=== PATIENT | female | born 1955 | race Caucasian/White ===

== ENCOUNTER → 2017-05-24 | Outpatient (CLI) | payer OTHER ==
[~2017-05-24] MED LIST: [UNRECOGNIZED DRUG - REMARK]
== END | disposition home or self-care (01) ==
LOC: CFH 12:59
PROVIDERS: ATTEND Family Medicine
DX: M19.011 Primary osteoarthritis, right shoulder (principal); M19.012 Primary osteoarthritis, left shoulder

== ENCOUNTER → 2017-11-29 | Outpatient (CLI) | payer BC ==
[~2017-11-29] MED LIST changes: +ACET-458 PO; +AMLO5TAB2 PO; +CHOL500045 PO; +MELO15TA24 PO; +MULT-658 PO; +OMEP20TA62 PO; +QUIN20TA17 PO; +TURM500C4 PO
[2017-11-29 15:01] LABS: CHLORIDE 110 mmol/L (98-107)
[2017-11-29 15:05] LABS: ALANINE AMINOTRANSFERASE 37 U/L (12-78); ALKALINE PHOSPHATASE 103 U/L (45-117); ANION GAP 7 mmol/L (5-15); BILIRUBIN,TOTAL 1.8 mg/dL (0.2-1.0); CALCIUM 8.7 mg/dL (8.5-10.1); CREATININE 0.69 mg/dL (0.55-1.02); TOTAL PROTEIN 7.2 g/dL (6.4-8.2)
== END | disposition home or self-care (01) ==
LOC: STAR 13:47
PROVIDERS: ATTEND Orthopaedic Surgery
DX: Z01.818 Encounter for other preprocedural examination (principal); M75.121 Complete rotator cuff tear or rupture of right shoulder, not specified as traumatic; M75.21 Bicipital tendinitis, right shoulder
CPT/HCPCS: 36415; 80053; 93005

== ENCOUNTER 2017-12-10 09:10 | Day surgery (SDC) | payer BC ==
[~2017-12-10] VITALS: Ht 172.7 cm; Wt 84.1 kg
[~2017-12-10 09:10] MED LIST changes: +BUPIVACAINE/PF 0.5% ONE; +EPINEPHRINE 1 MG/ML, 1ML ONE; +LIDOCAINE 1%, 50ML ONE
[2017-12-10] MEDS ORDERED: GABAPENTIN 300 MG CAPSULE PO ONE (09:28)
[2017-12-10] MEDS ORDERED: ACETAMINOPHEN 500 MG TABLET PO ONE (09:28)
[2017-12-10] MEDS ORDERED: ONDANSETRON ODT 8 MG PO ONE ×2 (09:28→10:00)
[2017-12-10] MEDS ORDERED: LACTATED RINGERS 1,000 ML IV SCH (09:34)
[2017-12-10] MEDS ORDERED: ACETAMINOPHEN 500 MG TABLET ONE (09:34)
[2017-12-10 09:35] VITALS: BP 150/78
[2017-12-10] MEDS ORDERED: LIDOCAINE-MPF 1%, 2ML ONE (09:35)
[2017-12-10] MEDS ORDERED: GABAPENTIN 300 MG CAPSULE ONE (09:35)
[2017-12-10] MEDS ORDERED: ONDANSETRON ODT 8 MG ONE (09:37)
[2017-12-10] MEDS ORDERED: MIDAZOLAM 1 MG/ML, 2ML ONE (09:47)
[2017-12-10] MEDS ORDERED: FENTANYL PF 100 MCG/2ML ONE (09:47)
[2017-12-10] MEDS ORDERED: LIDOCAINE-MPF 1%, 2ML INFIL ONE (10:00)
[2017-12-10] MEDS ORDERED: SUCCINYLCHOLINE 20 MG/ML, 10ML ONE (10:41)
[2017-12-10] MEDS ORDERED: ROCURONIUM 10 MG/ML,10ML ONE (10:41)
[2017-12-10] MEDS ORDERED: LIDOCAINE GEL 2%, 5ML ONE (10:44)
[2017-12-10] MEDS ORDERED: hydrALAzine 20 MG/ML, 1ML IV PRN (11:30)
[2017-12-10] MEDS ORDERED: morphine SULFATE 10 MG/ML, 1ML IV PRN (11:30)
[2017-12-10] MEDS ORDERED: LABETALOL 5MG/ML, 20ML IV PRN (11:30)
[2017-12-10] MEDS ORDERED: PROMETHAZINE 25 MG/ML, 1ML IV PRN (11:30)
[2017-12-10] MEDS ORDERED: ALBUTEROL/IPRATROPIUM 2.5MG/0.5MG, 3 ML NPPB PRN (11:30)
[2017-12-10] MEDS ORDERED: MIDAZOLAM 1 MG/ML, 2ML IV PRN (11:30)
[2017-12-10] MEDS ORDERED: DIAZEPAM 5 MG/ML, 2ML IVPush PRN (11:30)
[2017-12-10] MEDS ORDERED: PROMETHAZINE 12.5 MG SUPP PR PRN (11:30)
[2017-12-10] MEDS ORDERED: METOCLOPRAMIDE 5 MG/ML, 2ML IV PRN (11:30)
[2017-12-10] MEDS ORDERED: MEPERIDINE/PF 25MG/0.5ML IVPush PRN (11:30)
[2017-12-10] MEDS ORDERED: ONDANSETRON 2MG/ML, 2ML IVPush PRN (11:30)
[2017-12-10] MEDS ORDERED: FENTANYL PF 100 MCG/2ML IV PRN (11:30)
[2017-12-10] MEDS ORDERED: OXYcodone 5 MG/5 ML ORAL.SOL UDC PO PRN (11:30)
[2017-12-10] MEDS ORDERED: DEXAMETHASONE 4 MG/ML, 1ML ONE (11:34)
[2017-12-10] MEDS ORDERED: PROPOFOL 10 MG/ML, 20ML ONE (11:34)
[2017-12-10] MEDS ORDERED: CEFAZOLIN 1,000 MG ONE (11:34)
[2017-12-10] MEDS ORDERED: ONDANSETRON 2MG/ML, 2ML ONE (11:34)
[2017-12-10] MEDS ORDERED: GLYCOPYRROLATE 0.2MG/1ML, 5ML ONE (11:34)
[2017-12-10] MEDS ORDERED: BUPIVACAINE/PF 0.5% ONE (11:34)
== END 2017-12-10 16:05 | disposition home or self-care (01) ==
LOC: OUT 09:10
PROVIDERS: ATTEND Orthopaedic Surgery
DX: M75.111 Incomplete rotator cuff tear or rupture of right shoulder, not specified as traumatic (principal); M66.821 Spontaneous rupture of other tendons, right upper arm; M75.112 Incomplete rotator cuff tear or rupture of left shoulder, not specified as traumatic; M24.111 Other articular cartilage disorders, right shoulder; M65.811 Other synovitis and tenosynovitis, right shoulder; M75.41 Impingement syndrome of right shoulder; M19.011 Primary osteoarthritis, right shoulder; I10 Essential (primary) hypertension; Z88.5 Allergy status to narcotic agent; Z88.8 Allergy status to other drugs, medicaments and biological substances; Z98.890 Other specified postprocedural states; Z90.710 Acquired absence of both cervix and uterus; Z87.39 Personal history of other diseases of the musculoskeletal system and connective tissue
CPT/HCPCS: 29822; 29824; 29826; 29827; 29828; C1713; J0171; J0330; J0690; J1100; J2250; J2405; J2704; J3010; J3490; J7120; Q0162